=== PATIENT | female | born 2005 | race Caucasian/White ===

== ENCOUNTER 2024-09-19 00:25 | Emergency (ER) | payer BC ==
[2024-09-19] MEDS ORDERED: Ibuprofen 200 MG TAB ONE (00:59)
== END 2024-09-19 01:42 | disposition home or self-care (01) ==
LOC: ERS 00:25
DX: S92.535A Nondisplaced fracture of distal phalanx of left lesser toe(s), initial encounter for closed fracture (principal); W22.8XXA Striking against or struck by other objects, initial encounter
CPT/HCPCS: 99283